=== PATIENT | female | born 1950 | race Caucasian/White ===

== ENCOUNTER 2016-07-28 09:37 | Day surgery (SDC) | payer MEDICARE, MEDICAID ==
[2016-07-28] MEDS ORDERED: LIDOCAINE 2%HCL (LOCAL ANESTH.) INJ 20ML MDV ONE (10:52)
[2016-07-28] MEDS ORDERED: DOXY-216 PO (11:09)
[2016-07-28] MEDS ORDERED: CLOP75TA41 PO (11:09)
[2016-07-28] MEDS ORDERED: ROPI2TAB4 PO (11:09)
[2016-07-28] MEDS ORDERED: OMEP20CA74 PO (11:09)
[2016-07-28] MEDS ORDERED: PRAV20TA3 PO (11:09)
[2016-07-28] MEDS ORDERED: LISI10TA6 PO (11:09)
[2016-07-28] MEDS ORDERED: CARV25TA55 PO (11:09)
[2016-07-28] MEDS ORDERED: B-COCAP34 OR (11:09)
[2016-07-28] MEDS ORDERED: fentaNYL CITRATE 100 MCG/2 ML VL ONE (11:16)
[2016-07-28] MEDS ORDERED: MIDAZOLAM HCL 1MG/1ML-2 ML VIAL ONE (11:16)
== END 2016-07-28 15:15 | disposition home or self-care (01) ==
LOC: CATH 09:37
PROVIDERS: ATTEND Specialist
DX: T82.190A Other mechanical complication of cardiac electrode, initial encounter (principal); I82.B19 Acute embolism and thrombosis of unspecified subclavian vein; Y71.1 Therapeutic (nonsurgical) and rehabilitative cardiovascular devices associated with adverse incidents
CPT/HCPCS: 93619; C1730; C1894; J1644; J2250; J3010; J7030; 99152